=== PATIENT | female | born 1975 ===

== ENCOUNTER 2018-06-08 17:28 | Emergency (ER) | payer MEDICAID, OTHER ==
--- NOTE | 2018-06-08 18:13 | ED PDOC ---
Arrival/HPI - General Historian: Patient - History of Present Illness Narrative History of Present Illness (Text): 06/08/18 18:01 43 year old female, no significant pmh, nkda, complaining of shortness of breath x 2 days. Pt. stated that she feels fatigue, shortness of breath for the past 2 days, no recent sickness, no URI symptoms, no numbness or tingling, no palpitation, no night sweat, no change in vision, no other medical or psychological complaints. Past Medical History - Provider Review Nursing Documentation Reviewed: Yes - Past History Past History: Non-Contributing - Infectious Disease Hx of Infectious Diseases: None - Tetanus Immunization Tetanus Immunization: Unknown - Reproductive Currently : No - Psychiatric Hx Emotional Abuse: No Hx Physical Abuse: No Hx Substance Use: No - Surgical History Hx Section: Yes - Suicidal Assessment Feels Threatened In Home Enviroment: No Family/Social History - Physician Review Nursing Documentation Reviewed: Yes Family/Social History: Unknown Family HX Smoking Status: Never Smoked Hx Alcohol Use: No Hx Substance Use: No Allergies/Home Meds Allergies/Adverse Reactions: Allergies No Known Allergies Allergy (Verified 06/08/18 18:51) Review of Systems - Review of Systems Constitutional: Fatigue. absent: Fevers Eyes: absent: Vision Changes ENT: absent: Hearing Changes Respiratory: SOB. absent: Cough Cardiovascular: absent: Chest Pain Gastrointestinal: absent: Abdominal Pain, Diarrhea, Nausea, Vomiting Musculoskeletal: absent: Arthralgias, Back Pain Skin: absent: Rash, Pruritis Neurological: absent: Headache, Dizziness Endocrine: absent: Diaphoresis Psychiatric: absent: Anxiety, Depression, Suicidal Ideation Physical Exam - Systems Exam Head: Present: Atraumatic, Normocephalic Pupils: Present: PERRL Extroacular Muscles: Present: EOMI Conjunctiva: Present: Normal Mouth: Present: Moist Mucous Membranes Neck: Present: Normal Range of Motion, Trachea Midline. No: Meningeal Signs, ME DLINE TENDERNESS, Paraspinal Tenderness, Lymphadenopathy Respiratory/Chest: Present: Clear to Auscultation, Good Air Exchange. No: Respiratory Distress, Accessory Muscle Use, Wheezes, Decreased Breath Sounds, Rales, Retracting, Rhonchi, Tachypneic, Tender to Palpation Cardiovascular: Present: Regular Rate and Rhythm, Normal S1, S2, Other (no edema ). No: Murmurs, Irregular Rhythm, Gallop Abdomen: No: Tenderness, Distention, Peritoneal Signs, Rebound, Guarding Back: Present: Normal Inspection. No: CVA Tenderness, Midline Tenderness, Paraspinal Tenderness, Pain with Leg Raise, Decubitus Ulcer Upper Extremity: Present: Normal Inspection, Normal ROM, NORMAL PULSES, Giovana rovascularly Intact. No: Cyanosis, Edema, Deformity Lower Extremity: Present: Normal Inspection, NORMAL PULSES, Normal ROM, Deformity, Neurovascularly Intact, Capillary Refill < 2 s. No: Edema, Tenderness, Swelling Neurological: Present: GCS=15, CN II-XII Intact, Speech Normal, Motor Func Grossly Intact, Normal Cerebellar Funct, Gait Normal, Memory Normal Skin: Present: Warm, Dry, Normal Color. No: Rashes Lymphatic: No: Cervical Adenopathy Psychiatric: Present: Alert, Oriented x 3, Normal Insight, Normal Concentration Medical Decision Making ED Course and Treatment: 06/08/18 18:14 -labs -ekg -cxr -observe and reassess 06/08/18 21:42 -Urine hcg is negative -EKG: NSR@86 BPM, no ST elevation or depression, no T wave inversion -Chest xray: ER wet read: no active disease -Labs show no acute findings -Dimer is negative -Trop after 24 hours is negative -Pt. feels well and relief with IVF and duonebs -Orthostatic v/s: Flat 118/71 with HR 85, Sit 127/87 with HR 95, Stand 129/79 with HR 93 which are negative. -All labs discussed and request to be discharged home. -Discharge home with albuterol mdi, stay hydrated, bed rest, follow up with your own pmd and pulmonlogist/quality auditor within 2 days, return to the ER for any new or worsening signs or symptoms. - RAD Interpretation Radiology Orders: no active disease Rn Heart: Radiologist - PA / [employer] / Resident Statement MD/DO has reviewed & agrees with the documentation as recorded. Disposition/Present on Arrival - Present on Arrival Any Indicators Present on Arrival: No History of DVT/PE: No History of Uncontrolled Diabetes: No Urinary Catheter: No History of Decub. Ulcer: No History Surgical Site Infection Following: None - Disposition Have Diagnosis and Disposition been Completed?: Yes Diagnosis: Shortness of breath Disposition: HOME/ ROUTINE Disposition Time: 21:43 Patient Plan: Discharge Condition: IMPROVED Discharge Instructions (ExitCare): Shortness of Breath (Dyspnea) (DC) Additional Instructions: -Discharge home with albuterol mdi, stay hydrated, bed rest, follow up with your own pmd and pulmonlogist/quality auditor within 2 days, return to the ER for any new or worsening signs or symptoms. Prescriptions: Albuterol HFA [Ventolin HFA 90 mcg/actuation (8 g)] 2 puff IH [id number] PRN #1 inhaler PRN Reason: Cough Referrals: Kendy Purcell MD [Staff Provider] - Follow up with primary Kana Sherman MD [Staff Provider] - Follow up with primary [facility] [place] [Outside] - Follow up with primary Forms: WORK NOTE
[2018-06-08 18:20] VITALS: BMI 23.5
[2018-06-08 18:51] VITALS: RESP 18; TEMP 98
[2018-06-08 20:35] LABS: BASO # 0.03 K/mm3 (0.0-2.0); BASO % 0.5 % (0.0-3.0); EOS # 0.1 (0.0-0.7); HEMOGLOBIN 11.5 g/dL (12.0-16.0); LYMPH # 2.4 (1.2-3.4); LYMPH % 39.8 % (22.0-35.0); MEAN CELL VOLUME 88.8 fl (80.0-105.0); MEAN CORPUSCULAR HEMOGLOBIN 29.3 pg (25.0-35.0); MEAN PLATELET VOLUME 10.7 fl (7.0-11.0); MONO # 0.6 (0.1-0.6); MONO % 9.5 % (1.0-6.0); RBC 3.93 10^6/uL (3.5-6.1); RED CELL DISTRIBUTION WIDTH 13.6 % (11.5-14.5); WHITE BLOOD COUNT 5.9 10^3/uL (4.5-11.0)
[2018-06-08 20:46] LABS: ALB/GLOB RATIO 1.2 (1.1-1.8); ALBUMIN 4.3 g/dL (3.0-4.8); ALT/SGPT 8 U/L (7-56); AST/SGOT 24 U/L (14-36); BLOOD UREA NITROGEN 12 mg/dL (7-21); GFR NON-AFRICAN AMERICAN > 60
[2018-06-08] MEDS ORDERED: Sodium Chloride 0.9% 1,000 ML IV STA (20:50)
[2018-06-08] MEDS ORDERED: Albuterol-Ipratrop 3 mg / 0.5 (3 ml) UD IH STA (20:50)
[2018-06-08 20:56] LABS: TROPONIN I < 0.01 ng/mL
[2018-06-08 20:59] LABS: B-TYPE NATRIURETIC PEPTIDE 18.4 pg/mL (0-450)
[2018-06-08 22:03] VITALS: BP 112/62; PULSE 87; O2SAT 99
--- NOTE | 2018-06-09 07:46 | CARD ---
APPROVED REPORT Date of service: 06/08/2018 EKG Measurement Heart [id number] <Conclusion> Normal sinus rhythm Normal ECG
--- NOTE | 2018-06-09 09:37 | RAD ---
Date of service: 06/08/2018 HISTORY: SOB COMPARISON: Comparison chest 12/12/2013 FINDINGS: LUNGS: No active pulmonary disease. PLEURA: No significant pleural effusion identified, no pneumothorax apparent. CARDIOVASCULAR: No aortic atherosclerotic calcification present. Normal cardiac size. No pulmonary vascular congestion. OSSEOUS STRUCTURES: No significant abnormalities. VISUALIZED UPPER ABDOMEN: Normal. OTHER FINDINGS: None. IMPRESSION: No active disease.
== END 2018-06-08 22:03 | disposition home or self-care (01) ==
LOC: ED 17:28
DX: R06.02 Shortness of breath (principal)
CPT/HCPCS: 71045; 80053; 81025; 83735; 83880; 84484; 85025; 85378; 93005; 96360; 99284; J7030